=== PATIENT | male | born 1985 | race Caucasian/White ===

== ENCOUNTER 2016-06-12 06:19 | Emergency (ER) | payer OTHER ==
[2016-06-12] MEDS ORDERED: ULTRAM50 MG PO ×2 (06:43→06:45)
[2016-06-12] MEDS ORDERED: CIPRO500 MG PO ×2 (06:43→06:45)
== END 2016-06-12 06:59 | disposition home or self-care (01) ==
LOC: ED 06:19
DX: H60.502 Unspecified acute noninfective otitis externa, left ear (principal); F17.200 Nicotine dependence, unspecified, uncomplicated; Z91.040 Latex allergy status

== ENCOUNTER 2019-03-12 21:11 | Emergency (ER) | payer BC ==
[~2019-03-12] VITALS: Ht 170.1 cm; Wt 68.0 kg
[~2019-03-12 21:11] MED LIST: CIPRO500 MG PO; ULTRAM50 MG PO
[2019-03-12] MEDS ORDERED: CLINDAMYCIN HC300 MG PO (21:35)
== END 2019-03-12 21:50 | disposition home or self-care (01) ==
LOC: ED 21:11
DX: K08.89 Other specified disorders of teeth and supporting structures (principal); F17.200 Nicotine dependence, unspecified, uncomplicated

== ENCOUNTER 2021-05-17 21:40 | Emergency (ER) | payer SELFPAY ==
[~2021-05-17] VITALS: Ht 170.1 cm; Wt 72.6 kg
[~2021-05-17 21:40] MED LIST changes: +CLINDAMYCIN HC300 MG PO
== END 2021-05-17 22:19 | disposition home or self-care (01) ==
LOC: ED 21:40
DX: T15.02XA Foreign body in cornea, left eye, initial encounter (principal); Z91.040 Latex allergy status; W22.8XXA Striking against or struck by other objects, initial encounter; Y93.9 Activity, unspecified; Y92.89 Other specified places as the place of occurrence of the external cause; Y99.8 Other external cause status